=== PATIENT | male | born 1965 | race Caucasian/White ===

== ENCOUNTER 2020-07-27 11:34 | Emergency (ER) | payer SELFPAY ==
--- NOTE | 2020-07-27 12:13 | RAD ---
XR Chest 1 View Portable History: Left-sided weakness Comparison: Radiograph 2015 Findings: Lungs are clear. No pneumothorax or effusion. Cardiac silhouette and mediastinal contours a re within normal limits. No acute osseous abnormality. Impression: No acute intrathoracic abnormality.
[2020-07-27 12:14] LABS: #Basophils 0.1 thou/uL (0.0-0.2); #Eosinphils 0.4 thou/uL (0.0-0.7); #Lymphocytes 2.5 thou/uL (1.20-3.40); #Monocytes 0.9 thou/uL (0.11-0.59); #Neutrophils 7.2 thou/uL (1.40-6.50); %Basophils 0.9 % (0.0-1.0); %Eosinophils 3.6 % (0.0-10.0); %Lymphocytes 22.4 % (21.0-51.0); %Monocytes 8.5 % (0.0-10.0); %Neutrophils 64.7 % (42.0-75.0); Hemoglobin 15.2 g/dL (14.0-18.0); Mean Corpuscular HGB CONC 34.1 g/dL (32.0-36.0); Mean Corpuscular Hemoglobin 30.5 pg (27.0-31.0); Mean Corpuscular Volume 89.5 fL (78.0-98.0); Mean Platelet Volume 8.4 fL (7.4-10.4); Platelet Count 186 thou/uL (130-400); RBC Distribution Width 12.8 % (11.5-14.5); Red Blood Cell (RBC) Count 4.99 mill/uL (4.70-6.10); White Blood Cell (WBC) Count 11.1 thou/uL (4.8-10.8)
--- NOTE | 2020-07-27 12:19 | CT ---
CT BRAIN WITHOUT CONTRAST: Date: 07/27/2020 HISTORY: Level I stroke. Left-sided tingling and weakness. Patient's symptoms have resolved. COMPARISON: 07/10/2015. FINDINGS: No evidence of acute infarct, hemorrhage, midline shift, or abnormal extra-axial fluid collections ar e seen. The ventricular size is normal and the basilar cisterns are patent. The bony calvarium is int act. The visualized paranasal sinuses and mastoid air cells are well aerated. IMPRESSION: No CT evidence of acute intracranial process. Discussed over the telephone with ER physician, Dr. Sam, at 1153 hours. CODE CR. POS: MZA
[2020-07-27 12:26] LABS: Prothrombin Time 13.3 sec (12.0-14.7)
--- NOTE | 2020-07-27 12:27 | CT ---
CT ANGIOGRAM NECK WITH CONTRAST CT ANGIOGRAM BRAIN WITH CONTRAST: DATE: 07/27/2020 HISTORY: 55-year-old male with acute stroke symptoms: Left-sided paresthesia and left sided weakness. Dr. Horne verbally gave this stroke alert protocol CTA report by telephone to Dr. Sma at 12:22 PM 1 TECHNIQUE: After IV contrast injection, arterial bolus chasing technique scan performed from aortic arch to vert ex of head. Coronal and sagittal 3-D MIP reconstructions. FINDINGS: No consolidation at lung apices. Bilateral MCAs: No clot, occlusion, or high-grade stenosis in M1 segments. Bilateral ACAs: Bilateral A1 and A2 segments patent. Bilateral carotid siphons: Atherosclerotic calcification without evidence of high-grade stenosis. Intracranial vertebrals: Diminutive right vertebral. No contrast in proximal intracranial right verte bral. Mid and distal portions patent Robust caliber left vertebral. No acquired short segment high-grade stenosis or occlusion. Bilateral rink rat: P1 and P2 segments patent Bilateral superior cerebellars: Diffusely small caliber. Cervical right vertebral: Diminutive. No contrast in the lumen at C1 level. Cervical left vertebral: Robust caliber, dominant. No high-grade stenosis. Brachiocephalic: Normal caliber. Right subclavian: Normal caliber. Left subclavian: Distal portion obscured by streak artifact from contrast bolus in adjacent left subc lavian vein. Proximal portion normal caliber. Right common carotid: Normal caliber Left common carotid: Normal caliber. Right internal carotid: Small calcified plaque at origin. No stenosis. Distal portion tortuous. Left internal carotid: No calcified plaque. No stenosis. Distal portion tortuous. No evidence of arterial dissection. No dural venous sinus thrombosis. IMPRESSION: 1) diminutive right vertebral artery. 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 3) mild atheromatous calcified plaque at right carotid bulb. No stenosis. 4) otherwise, no short segment, acquired high-grade stenosis, thrombosis, dissection, or occlusion, i nvolving major arteries of neck, or involving the M1 segments of the bilateral middle cerebral arteries.
[2020-07-27 12:30] LABS: Acetaminophen Less than 6.0 mcg/mL (10.0-30.0); Alcohol Less than 10 mg/dL (Less than 10); CK (CPK) 185 U/L (30-200); Salicylate Less than 8.0 mg/dL (15.0-30.0)
[2020-07-27 12:31] LABS: ALT (SGPT) 23 U/L (8-55); AST (SGOT) 23 U/L (5-34); Albumin 4.2 g/dL (3.5-5.0); Alkaline Phosphatase 115 U/L (40-110); Anion Gap 14 mmol/L (10-20); BUN (Urea Nitrogen) 11 mg/dL (8.4-25.7); Bilirubin, Total 0.7 mg/dL (0.2-1.2); Calc. Creatinine Clearance 0 mL/min (70-130); Calcium 8.9 mg/dL (7.8-10.44); Carbon Dioxide 24 mmol/L (22-29); Chloride 104 mmol/L (98-107); Estimated GFR-MDRD 64; Globulin 2.8 g/dL (2.4-3.5); Glucose 134 mg/dL (70-105); Potassium 3.7 mmol/L (3.5-5.1); Sodium 138 mmol/L (136-145)
[2020-07-27] MEDS ORDERED: Iopamidol-370 76% 500 ML 1 ML ONE (13:46)
[2020-07-27 13:58] LABS: Medtox Reader # READER 1; THC/Cannabinoid Screen Detected (NotDetected)
[2020-07-27 13:59] LABS: Amphetamine Not Detected (NotDetected); Barbiturates Screen Not Detected (NotDetected); Benzodiazepine Screen Detected (NotDetected); Cocaine Metabolite Screen Not Detected (NotDetected); Medtox Control Line Valid? VALID (VALID); Methadone Not Detected (NotDetected); Methamphetamine Not Detected (NotDetected); Opiate Screen Not Detected (NotDetected); Oxycodone Screen Not Detected (NotDetected); Phencyclidine (PCP) Not Detected (NotDetected); Tricyclic Screen Not Detected (NotDetected)
--- NOTE | 2020-07-28 12:33 | CT ---
CT ANGIOGRAM NECK WITH CONTRAST CT ANGIOGRAM BRAIN WITH CONTRAST: DATE: 07/27/2020 HISTORY: 55-year-old male with acute stroke symptoms: Left-sided paresthesia and left sided weakness. Dr. Horne verbally gave this stroke alert protocol CTA report by telephone to Dr. Sam at 12:22 PM 1 TECHNIQUE: After IV contrast injection, arterial bolus chasing technique scan performed from aortic arch to vert ex of head. Coronal and sagittal 3-D MIP reconstructions. FINDINGS: No consolidation at lung apices. Bilateral MCAs: No clot, occlusion, or high-grade stenosis in M1 segments. Bilateral ACAs: Bilateral A1 and A2 segments patent. Bilateral carotid siphons: Atherosclerotic calcification without evidence of high-grade stenosis. Intracranial vertebrals: Diminutive right vertebral. No contrast in proximal intracranial right verte bral. Mid and distal portions patent Robust caliber left vertebral. No acquired short segment high-grade stenosis or occlusion. Bilateral commercial front load driver: P1 and P2 segments patent Bilateral superior cerebellars: Diffusely small caliber. Cervical right vertebral: Diminutive. No contrast in the lumen at C1 level. Cervical left vertebral: Robust caliber, dominant. No high-grade stenosis. Brachiocephalic: Normal caliber. Right subclavian: Normal caliber. Left subclavian: Distal portion obscured by streak artifact from contrast bolus in adjacent left subc lavian vein. Proximal portion normal caliber. Right common carotid: Normal caliber Left common carotid: Normal caliber. Right internal carotid: Small calcified plaque at origin. No stenosis. Distal portion tortuous. Left internal carotid: No calcified plaque. No stenosis. Distal portion tortuous. No evidence of arterial dissection. No dural venous sinus thrombosis. IMPRESSION: 1) diminutive right vertebral artery. 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 3) mild atheromatous calcified plaque at right carotid bulb. No stenosis. 4) otherwise, no short segment, acquired high-grade stenosis, thrombosis, dissection, or occlusion, i nvolving major arteries of neck, or involving the M1 segments of the bilateral middle cerebral arteries. Transcribed Date/Time: 07/28/2020 12:32 PM
--- NOTE | 2020-08-01 13:26 | EKG ---
Test Reason : Blood Pressure : / mmHG Vent. Rate : 054 BPM Atrial Rate : 054 BPM P-R Int : 136 ms QRS Dur : 090 ms QT Int : 474 ms P-R-T Axes : 028 039 012 degrees QTc Int : 449 ms Sinus bradycardia Otherwise normal ECG Confirmed by VINH PAINTING DO ([id number]), copy editor LILLIAN TONY ([id number]) on 08/01/2020 1:25:52 PM Referred By: Confirmed By:VINH PAINTING DO
== END 2020-07-27 14:02 | disposition home or self-care (01) ==
LOC: ERS 11:34
DX: R20.2 Paresthesia of skin (principal); Z86.73 Personal history of transient ischemic attack (TIA), and cerebral infarction without residual deficits; F41.9 Anxiety disorder, unspecified; F32.9 Major depressive disorder, single episode, unspecified; F17.210 Nicotine dependence, cigarettes, uncomplicated
CPT/HCPCS: 36415; 36416; 70450; 70496; 70498; 71045; 80053; 80306; 80307; 82550; 83605; 84484; 85025; 85610; 85730; 93005; Q9967